=== PATIENT | male | born 1955 | race Caucasian/White ===

== ENCOUNTER 2024-05-24 08:20 | Emergency (ER) | payer OTHER ==
[~2024-05-24] VITALS: Ht 172.7 cm; Wt 59.0 kg
[2024-05-24 11:00] VITALS: BP 168/93
[2024-05-24] MEDS ORDERED: Tetanus,Diphtheria Toxd Ped/Pf 0.5 ML VIAL IM ONE (11:05)
[2024-05-24] MEDS ORDERED: Diphth,Pertuss(Acell),Tet Vac 0.5 ML VIAL IM ONE (11:15)
== END 2024-05-24 11:30 | disposition home or self-care (01) ==
LOC: ER 08:20
DX: S01.01XA Laceration without foreign body of scalp, initial encounter (principal); W18.30XA Fall on same level, unspecified, initial encounter; F17.210 Nicotine dependence, cigarettes, uncomplicated
CPT/HCPCS: 70450; 90471; 90702; 90715; 99283-25

== ENCOUNTER 2024-11-20 14:14 | Inpatient (IN) | payer OTHER ==
[~2024-11-20] VITALS: Ht 172.7 cm; Wt 59.2 kg
[2024-11-20 15:39] LABS: BASOPHILS ABSOLUTE AUTO 0.07 K/mm3 (0.00-0.23); BASOPHILS PERCENT AUTO 1 % (0-2); EOSINOPHILS ABSOLUTE AUTO 0.25 K/mm3 (0.00-0.68); EOSINOPHILS PERCENT AUTO 3 % (0-6); Hematocrit 47.5 % (37.0-53.0); Hemoglobin 16.8 g/dL (13.5-17.5); IMMATURE GRAN ABSOLUTE AUTO 0.04 K/mm3 (0.00-0.10); IMMATURE GRAN PERCENT AUTO 0 % (0-1); LYMPHOCYTES ABSOLUTE AUTO 1.14 K/mm3 (0.84-5.20); LYMPHOCYTES PERCENT AUTO 12 % (21-46); MONOCYTES ABSOLUTE AUTO 0.76 K/mm3 (0.16-1.47); MONOCYTES PERCENT AUTO 8 % (4-13); Mean Corpuscular HGB Conc 35.4 g/dL (31.5-36.5); Mean Corpuscular Volume 102 fL (80-100); NEUTROPHILS ABSOLUTE AUTO 7.13 K/mm3 (1.96-9.15); NEUTROPHILS PERCENT AUTO 76 % (41-73); NRBC ABSOLUTE 0.00 K/mm3 (0.00-0.02); NRBC Auto 0.0 /100 WBC (0.0-0.2); Platelet Count 211 K/mm3 (150-400); RDW Coefficient Variation 12.5 % (11.7-14.2); RDW Standard Deviation 47.2 fL (35.1-46.3)
[2024-11-20 15:56] LABS: Prothrombin Time Results 11.4 Sec (9.7-11.5)
[2024-11-20 16:13] LABS: Alanine Aminotransfer (ALT/SGP 32.0 U/L (12-78); Albumin, Blood 4.3 g/dL (3.4-5.0); Albumin/Globulin Ratio 1.2 (0.8-1.8); Anion Gap 9.0 mmol/L (3-11); Aspartate Aminotrans (AST/SGOT 24.0 U/L (12-37); Bilirubin, Total 0.7 mg/dL (0.1-1.0); Blood Urea Nitrogen 11.0 mg/dL (8-24); CO2, Blood 28.0 mmol/L (21-32); Calcium, Blood 9.4 mg/dL (8.5-10.1); Chloride, Blood 103.0 mmol/L (98-108); Creatinine, Blood 0.88 mg/dL (0.60-1.20); Globulin, Blood 3.7 g/dL (2.2-4.0); Glucose, Blood 104.0 mg/dL (70-99); Potassium, Blood 3.6 mmol/L (3.5-5.5); Sodium, Blood 136.0 mmol/L (136-145); Total Protein, Blood 8.0 g/dL (6.4-8.2)
[2024-11-20 17:08] LABS: Source, Urine Clean Catch
[2024-11-20 17:19] LABS: Bilirubin, Urine Neg (Neg); Glucose Qualitative, Urine Neg (Neg); Ketones, Urine Neg (Neg); Leukocyte Esterase, Urine Neg (Neg); Protein, Urine Neg (Neg); Specific Gravity, Urine 1.010 (1.003-1.022); Urobilinogen, Urine NORM (Normal)
[2024-11-20 17:28] LABS: Color, Urine Pale Yellow (P-Yellow)
[2024-11-20] MEDS ORDERED: NS 1,000 ML IV SCH (17:30)
[2024-11-20] MEDS ORDERED: Ondansetron HCl 2 MG / ML 2ML Vial IV PRN (17:30)
[2024-11-20] MEDS ORDERED: Labetalol HCL 5 MG/ML 4ML Injection (Single Dose) IV PRN (17:30)
[2024-11-20 19:29] VITALS: BP 165/102
--- NOTE | 2024-11-20 19:30 | NUR ---
Arrival to unit + Nicotine patch Patient arrived to unit via gurney from ED w/ two family members. AOx3-4, slide transferred over to bed w/ staff assist. Patient requested a nicotine patch as soon as he arrived. Shabbir James NP was called, received T.O. for one time dose of Nicotine patch 21mg to be applied topically. Patient reports having smoked cigarettes since he was 11 years old. He smokes anywhere from 1-1.5 ppd. Also states he drinks whiskey and that a fifth would probably last him 4 days total, however, does not drink on a daily basis. Patient made that pretty clear, but did also say he was in a treatment facility once for diversion of alcohol, does not recall exactly when. Seems patient is still grieving from late who passed 2 years ago, but did say he is drinking a lot less now compared to when she was still alive. CIWA -0- at this time. Will obtain orders to assess for alcohol withdrawal. Pt denies ever having withdrawal symptoms. NIHSS completed. Patient settled to room, bed in lowest position, using urinal independently, call light and possessions near, bed alarm on.
--- NOTE | 2024-11-20 20:25 | NUR ---
NICOTINE PATCH Patient requesting nicotine patch on arrival to unit. Called Shabbir James and received a T.O. for 21mg nicotine patch once to be applied topically. Order entered.
[2024-11-21] MEDS ORDERED: LORazepam 2 MG/ML 1ML Injection IV PRN (03:15)
[2024-11-21 03:57] VITALS: BP 165/94
--- NOTE | 2024-11-21 05:47 | NUR ---
Shift Summary AOx3-4. ILIAMNA. Called and spoke with Dr. Jose Wiseman RE concerns of possible alcohol withdraw because pt reported drinking whiskey. Obtained orders for alcohol assessment and meds for withdrawals, all entered by Dr. Wiseman. Patient has little control of trunk and unable to attain a dangling/seated position alone safely at the edge of the bed. Denies pain. Advised to call for assistance when. Call light in reach. Bed alarm on.
[2024-11-21 05:54] LABS: Hematocrit 44.8 % (37.0-53.0); Hemoglobin 16.1 g/dL (13.5-17.5); Mean Corpuscular HGB Conc 35.9 g/dL (31.5-36.5); Mean Corpuscular Volume 101 fL (80-100); NRBC ABSOLUTE 0.00 K/mm3 (0.00-0.02); NRBC Auto 0.0 /100 WBC (0.0-0.2); Platelet Count 179 K/mm3 (150-400); RDW Coefficient Variation 12.3 % (11.7-14.2); RDW Standard Deviation 46.4 fL (35.1-46.3)
[2024-11-21 06:19] LABS: Anion Gap 10 mmol/L (3-11); Blood Urea Nitrogen 7 mg/dL (8-24); CHOL/HDL RATIO 5.5; CO2, Blood 23 mmol/L (21-32); Calcium, Blood 8.6 mg/dL (8.5-10.1); Chloride, Blood 102 mmol/L (98-108); Cholesterol 199 mg/dL (50-200); Creatinine, Blood 0.70 mg/dL (0.60-1.20); Glucose, Blood 120 mg/dL (70-99); HDL Cholesterol 36 mg/dL (>39); LDL/HDL RATIO 3.4; Low Density Lipoprotein Chol 121 mg/dL (0-110); Potassium, Blood 3.4 mmol/L (3.5-5.5); Sodium, Blood 132 mmol/L (136-145); Triglycerides 211 mg/dL (30-160); Very Low Density Lipoprot Chol 42 mg/dL (6-32)
[2024-11-21 07:30] VITALS: BP 178/110
[2024-11-21] MEDS ORDERED: Enoxaparin 40 MG/0.4 ML SYR SC SCH (09:00)
[2024-11-21 11:06] VITALS: BP 159/95
[2024-11-21 16:22] VITALS: BP 173/100
--- NOTE | 2024-11-21 17:21 | NUR ---
End of shift summary: Patient is alert and oriented x3; pleasant and cooperative with care. CIWA's have remained 0 today. Patient has denied CP or pressure, SOB, N/V/D or pain today. Patient had ECHO completed and will be having MRI this evening. All medications administered per EMAR. Patient remains with left-sided weakness, more left upper arm, but slight improvement noted. Patient utilizing call light appropriately; call light within reach and bed in lowest position. Will continue to monitor until next shift nurse arrives and report is given.
[2024-11-21 19:58] VITALS: BP 156/103
[2024-11-21 23:48] VITALS: BP 166/101
[2024-11-22 04:20] VITALS: BP 164/100
--- NOTE | 2024-11-22 06:09 | NUR ---
Shift Summary AOx4. [place]. Pleasant/Cooperative. Slept well tonight. Patient struggles with a shy bladder and is unable to urinate if anyone is in the room with him. Trialed male purewick and it appears to be effective. Patient voiding well w/ purewick, positive for hematuria which seems to be intermittent. Patient denies pain. Pillow support to LUE. CIWA has been consistently -0- throughout shift. NIHSS: 10, an increase from 7 the day prior. Granddaughter is an employee here and is an assembler unit. Call light in reach. Bed in lowest position. Alarm on. Patient can be impulsive.
[2024-11-22 07:07] VITALS: BP 156/97
[2024-11-22] MEDS ORDERED: NS 250 ML IV PRN (09:35)
[2024-11-22 11:22] VITALS: BP 146/88
[2024-11-22 15:35] VITALS: BP 164/92
--- NOTE | 2024-11-22 18:09 | NUR ---
SHIFT SUMMARY: PATIENT A+O X3 AND AT TIMES ABLE TO MAKE NEEDS KNOWN. HOURLY ROUNDING PERFORMED TO HELP WITH THIS ISSUE. PLAN TO CONTINUE ACUTE CVA TREATMENT AT THIS TIME UNTIL NEXT WEEK WHEN [facility] IS ABLE TO TAKE THIS PATIENT. THIS PATIENT WAS SUPPOSED TO D/C TODAY BUT DID NOT MEET DEADLINE FOR PICKUP. PATIENT REMAINS COMPLETELY FLACID ON L ARM BUT IS NOTED TO HAVE PARTIAL MOVEMENT IN LLE. URINARY OUTPUT HAS BEEN LIMITED THIS SHIFT. DR. CLAUDIO AWARE OF THIS ISSUE. URINE REMAINS LIGHT RED IN COLOR. LUNGS CLEAR c S1 S2 HEARD ON ASCULTATION. PATIENT CARE ONGOING AT THIS TIME, WILL CONTINUE TO MONITOR.
[2024-11-22 19:27] VITALS: BP 153/91
[2024-11-22 23:45] VITALS: BP 125/88
[2024-11-23 03:52] VITALS: BP 140/89
--- NOTE | 2024-11-23 06:42 | NUR ---
Shift Summary Very low urinary output t/o the day and night yesterday and tonight. Roughly 300 mL of sparkle urine. I encouraged PO fluid intake while pt was up, pt slept t/o most of the night. He is AOx3-4. LUE is flaccid and LLE is very weak and impaired. Eyes are PERRLA. No s/s of ETOH WD.
[2024-11-23 07:32] VITALS: BP 155/82
[2024-11-23 10:15] LABS: Hematocrit 51.6 % (37.0-53.0); Hemoglobin 18.8 g/dL (13.5-17.5); Mean Corpuscular HGB Conc 36.4 g/dL (31.5-36.5); Mean Corpuscular Volume 101 fL (80-100); NRBC ABSOLUTE 0.00 K/mm3 (0.00-0.02); NRBC Auto 0.0 /100 WBC (0.0-0.2); Platelet Count 228 K/mm3 (150-400); RDW Coefficient Variation 12.2 % (11.7-14.2); RDW Standard Deviation 46.4 fL (35.1-46.3)
[2024-11-23 10:39] LABS: Anion Gap 10.0 mmol/L (3-11); Blood Urea Nitrogen 15.0 mg/dL (8-24); CO2, Blood 21.0 mmol/L (21-32); Calcium, Blood 9.1 mg/dL (8.5-10.1); Chloride, Blood 104.0 mmol/L (98-108); Creatinine, Blood 0.81 mg/dL (0.60-1.20); Glucose, Blood 119.0 mg/dL (70-99); Potassium, Blood 4.1 mmol/L (3.5-5.5); Sodium, Blood 131.0 mmol/L (136-145)
[2024-11-23 11:16] VITALS: BP 121/73
[2024-11-23] MEDS ORDERED: NS 1,000 ML IV SCH (11:20)
[2024-11-23 15:20] VITALS: BP 134/84
--- NOTE | 2024-11-23 18:22 | NUR ---
SHIFT SUMMARY: PATIENT A+O X3 DURING THIS DAY AND SEEMS TO BE MORE AWAKE DURING THIS SHIFT. PATIENT ABLE TO ANSWER QUESTIONS APPROP. L SIDED DEFECITS ARE STILL NOTED ON FOCUSED ASSESSMENT'S. PATIENT CONTINUES TO VOID DARK YELLOW URINE AT THIS TIME. NS RUNNING @100ML/HR TO HELP WITH DEHYDRATION. PLAN TO D/C TO [facility] ON MONDAY. PLAN OF CARE ONGOING AT THIS TIME, WILL CONTINUE TO MONITOR.
[2024-11-23 19:23] VITALS: BP 134/81
[2024-11-23 23:39] VITALS: BP 132/81
--- NOTE | 2024-11-24 05:53 | NUR ---
SHIFT SUMMARY PT SLEPT INTERMITTENTLY DURING THE NIGHT. LEFT ARM REMAINS FLACCID WITH SOME LEFT SIDED NEGLECT NOTED. PT ABLE TO LIFT LLE AND USE LEG TO HELP REPOSITION HIMSELF. PUREWICK PLACED FOR DIFFICULTY WITH URINAL, BUT REMOVED WHEN PT HAD AN INCONT STOOL THAT DIRTIED THE PUREWICK BAG. 1 LITER IVF COMPLETED PER ORDER. PT NOT DRINKING VERY MUCH PO FLUID EVEN WITH ENCOURAGEMENT. URINE IS BEN IN COLOR, NO BLOOD NOTED. PT REPOSITIONS SELF, AND IS REPOSITIONED WITH HELP PRN. CALL LIGHT WITHIN REACH.
[2024-11-24 07:29] VITALS: BP 142/72
[2024-11-24 10:26] LABS: Anion Gap 9.0 mmol/L (3-11); Blood Urea Nitrogen 17.0 mg/dL (8-24); CO2, Blood 24.0 mmol/L (21-32); Calcium, Blood 8.4 mg/dL (8.5-10.1); Chloride, Blood 104.0 mmol/L (98-108); Creatinine, Blood 0.8 mg/dL (0.60-1.20); Glucose, Blood 118.0 mg/dL (70-99); Potassium, Blood 3.9 mmol/L (3.5-5.5); Sodium, Blood 133.0 mmol/L (136-145)
[2024-11-24 11:13] VITALS: BP 123/65
[2024-11-24] MEDS ORDERED: ASPI81CH PO (13:08)
[2024-11-24] MEDS ORDERED: METO50ER PO (13:09)
[2024-11-24] MEDS ORDERED: CLOP75 PO (13:09)
[2024-11-24] MEDS ORDERED: ATOR80 PO (13:09)
[2024-11-24 15:09] VITALS: BP 156/92
--- NOTE | 2024-11-24 19:38 | NUR ---
SHIFT SUMMARY: PATIENT REMAINS A+O X3-4 THROUGHOUT THIS SHIFT. PATIENT NOTED TO HAVE X3 LOOSE BOWEL MOVEMENTS. DR. CLAUDIO NOTIFIED OF FINDINGS, NO FURTHER TESTING ORDERED AT THIS TIME. PATIENT TO D/C TO [facility] FOR CONTINUED THERAPY THIS SHIFT. LUE AND LE DEFICITE. LLE NOTED TO HAVE IMPROVED MOBILITY. L ARM REMAINS FLACID. URINE REMAINS BEN COLORED c IMPROVED URINARY OUTPUT. TRANSPORT WAS SCHEDULED FOR 1600. PATIENT BELONGINGS PACK AND PROVIDED BACK TO PATIENT. TRANSPORTATION WAS RESCHEDULED FOR [facility].
== END 2024-11-24 19:32 | DRG 65 ==
LOC: ER 14:14 → MEDS 17:25
PROVIDERS: Emergency Medicine; Internal Medicine; Nurse Practitioner Acute Care; Physician Assistant; ADMIT Student in an Organized Health Care Education/Training Program
DX: I63.81 Other cerebral infarction due to occlusion or stenosis of small artery (principal); G81.94 Hemiplegia, unspecified affecting left nondominant side; I10 Essential (primary) hypertension; E78.5 Hyperlipidemia, unspecified; F10.90 Alcohol use, unspecified, uncomplicated; R29.707 NIHSS score 7; R29.810 Facial weakness; R47.81 Slurred speech; F17.210 Nicotine dependence, cigarettes, uncomplicated; R31.9 Hematuria, unspecified; Z91.81 History of falling
CPT/HCPCS: 36415; 70450; 70496; 70498; 70551; 80048; 80053; 80061; 81003; 83036; 84443; 85025; 85027; 85610; 85730; 92610; 93005; 93010; 93306; 97112; 97116; 97162; 97166; 97530; 97535; 99285-25; A9270; J1650; J3411; J7030; J7050; Q9967